=== PATIENT | female | born 2000 | race Two or more races ===

== ENCOUNTER 2023-09-29 21:17 | Emergency (ER) | payer MEDICAID ==
[~2023-09-29] VITALS: Ht 165.1 cm; Wt 65.2 kg
[2023-09-30] MEDS: NEOMYCIN-BACITRACIN-POLYM UNITDOSE PKG TOP OINT TOP ONE (01:30)
[2023-09-30] MEDS ORDERED: MUPI2OIN2 EX (01:32)
[2023-09-30] MEDS ORDERED: IBUP1TAB5 PO (01:32)
[2023-09-30] MEDS ORDERED: CEPH500C PO (01:32)
[2023-09-30 01:56] VITALS: BP 119/76; PULSE 79; RESP 20; TEMP 98
[2023-09-30] MEDS: HYDROcodone-ACET 5/325MG TAB PO ONE (02:12)
[2023-09-30] MEDS: CEPHALEXIN 250 MG CAP PO ONE (02:12)
[2023-09-30 02:54] VITALS: O2SAT 99
== END 2023-09-30 03:21 | disposition home or self-care (01) ==
LOC: ER 21:17
DX: S61.101A Unspecified open wound of right thumb with damage to nail, initial encounter (principal); W22.8XXA Striking against or struck by other objects, initial encounter; Y93.89 Activity, other specified; Y92.89 Other specified places as the place of occurrence of the external cause; Y99.8 Other external cause status
CPT/HCPCS: 11730